=== PATIENT | male | born 1955 | race Caucasian/White ===

== ENCOUNTER 2017-06-12 08:10 | Day surgery (SDC) | payer BC ==
[2017-06-05 14:01] VITALS: BMI 26.6
[2017-06-12] MEDS ORDERED: PROPOFOL 20 ML ONE (08:29)
[2017-06-12 09:12] VITALS: TEMP 98.2
[2017-06-12 09:35] VITALS: BP 132/82; PULSE 82
== END 2017-06-12 09:37 | disposition home or self-care (01) ==
LOC: FASU-ENDO 08:10
PROVIDERS: ATTEND Internal Medicine Gastroenterology
PROC: 0DJD8ZZ Inspection of Lower Intestinal Tract, Via Natural or Artificial Opening Endoscopic (ICD-10-PCS; principal; 2017-06-12 08:52)
DX: Z12.11 Encounter for screening for malignant neoplasm of colon (principal); K57.30 Diverticulosis of large intestine without perforation or abscess without bleeding